=== PATIENT | female | born 1945 | race Caucasian/White ===

== ENCOUNTER 2020-02-12 14:04 | Outpatient (REF) | payer MEDICARE, SELFPAY ==
--- NOTE | 2020-02-12 | MM_ITS ---
EXAMINATION: MM SCREENING DIGITAL BREAST TOMOSYNTHESIS, BILATERAL CLINICAL INFORMATION: Screening. Asymptomatic. The lifetime risk of breast cancer based on the Tyrer-Cuzick Model is 4%. COMPARISON: Mammography: 03/27/2019, 10/20/2018, 05/17/2017 TECHNIQUE: Digital breast tomosynthesis is performed in both the craniocaudal and mediolateral oblique views along with computer-aided detection (CAD). Synthesized 2D images are generated from the tomosynthesis. Additional bilateral CC views are provided. FINDINGS: There are scattered areas of fibroglandular density (ACR BI-RADS breast composition Category b). Parenchymal pattern is similar to prior studies. No interval mass or developing density or architectural abnormality. Again, there are scattered bilateral benign round and rim and coarse calcifications. No significant changes. MM/MM tomosynthesis screening BI IMPRESSION: No mammographic evidence of malignancy. ASSESSMENT: BI-RADS 2: Benign RECOMMENDATION: Routine annual mammography screening. This patient's information was entered into a reminder system with a target due date for their next mammogram.
--- NOTE | 2020-02-12 | MM_ITS ---
EXAMINATION: BONE DENSITOMETRY CLINICAL INDICATION: Asymptomatic menopausal state. COMPARISON: Baseline BD dated 03/01/2017. TECHNIQUE: Using a [employer] DXA System (software version: 13.1) manufactured by [employer], dual-energy x-ray absorptiometry was performed of the lumbar spine and left hip. The images are of good technical quality. Summary results are attached. FINDINGS: AP SPINE L1-L4 (excluding L3): The data of L1-L4 has been changed to exclude the L3 vertebral body, because degenerative changes at this level may cause overestimation of lumbar spine density. Current: BMD 1.362 g/cm2, Z-score 2.2, T-score 1.6, normal, 3.1% increase from baseline (<5% change is not significant). Baseline: BMD 1.321 g/cm2. LEFT FEMUR, NECK: Current: BMD 0.906 g/cm2, Z-score 0.3, T-score -1.0, normal. Baseline: BMD 0.882 g/cm2. LEFT FEMUR, TOTAL: Current: BMD 1.025 g/cm2, Z-score 1.1, T-score 0.1, normal, 0.1% decrease from baseline (<5% change is not significant). Baseline: BMD 1.026 g/cm2. IDENTIFIED RISK FACTORS: Recurrent falls, history of fracture (adult), low calcium intake, glucocorticoids (chronic), menopause. HISTORY OF FRACTURE: Forearm, wrist, humerus. MEDICATIONS: Calcium supplements or multivitamin. MM/XR DEXA axial skeleton IMPRESSION: 1. DIAGNOSIS: Normal bone density based on the lowest T-score value of -1.0 in the femoral neck applying World Health Organization criteria. 2. 10-YEAR FRACTURE RISK PREDICTION, FRAX: Major osteoporotic fracture (clinical spine, forearm, hip or shoulder) 20.0%. Hip fracture 3.1%. 3. Treatment Recommendations: NOF guidelines recommend consideration for treatment in postmenopausal women and men age 50 and older presenting with the following: -A hip or vertebral (clinical or morphometric) fracture. -T-score less than or equal to -2.5 at the femoral neck or spine after appropriate evaluation to exclude secondary causes. -Low bone mass at the hip or spine and a 10-year fracture probability by FRAX of greater than or equal to 3% for hip fracture or greater than or equal to 20% for major osteoporotic fracture based on the [place] adapted WHO algorithm. 4. Other Recommendations: All treatment decisions require clinical judgment and consideration of individual patient factors, including patient preferences, comorbidities, previous drug use, risk factors not captured in the FRAX model (e.g. frailty, falls, vitamin D deficiency, increased bone turnover, interval significant decline in bone density) and possible under or overestimation of fracture risk by FRAX. FUTURE SCAN RECOMMENDATION: People with diagnosed cases of osteoporosis or at high risk for fracture should have regular bone mineral density tests. For patients eligible for Medicare, routine testing is allowed once every 2 years. The testing frequency can be increased to one year for patients who have rapidly progressing disease, those who are receiving or discontinuing medical therapy to restore bone mass, or have additional risk factors.
== END 2020-02-12 14:05 | disposition home or self-care (01) ==
LOC: HO.MAMMO 14:04
PROVIDERS: Visit Provider Internal Medicine
DX: Z12.31 Encounter for screening mammogram for malignant neoplasm of breast (principal); Z13.820 Encounter for screening for osteoporosis; Z78.0 Asymptomatic menopausal state
CPT/HCPCS: 77063; 77067; 77080

== ENCOUNTER 2021-04-27 16:02 | Outpatient (REF) | payer MEDICARE, SELFPAY ==
--- NOTE | ~2021-04-27 | MM_ITS ---
EXAMINATION: MM SCREENING DIGITAL BREAST TOMOSYNTHESIS, BILATERAL CLINICAL INFORMATION: Screening. Asymptomatic. The lifetime risk of breast cancer based on the Tyrer-Cuzick Model is 3%. COMPARISON: Mammography: 02/12/2020, 03/27/2019, 10/20/2018, 05/17/2017, 02/12/2016 TECHNIQUE: Digital breast tomosynthesis is performed in both the craniocaudal and mediolateral oblique views along with computer-aided detection (CAD). Synthesized 2D images are generated from the tomosynthesis. Additional bilateral CC and left MLO views are provided. FINDINGS: There are scattered areas of fibroglandular density (ACR BI-RADS breast composition Category b). There is fine fibronodular parenchymal pattern with scattered benign round and coarse and rim calcifications again noted. The right breast shows no interval mass or architectural abnormality or developing density. The bilateral axilla and skin contours are unremarkable. Left breast has segmental grouped circumscribed nodularity lower inner quadrant mid depth, increased in number and size from prior exams. This could represent focal fibrocystic changes and/or duct ectasia. No architectural abnormality demonstrated. No associated calcification. Patient will be recalled for additional imaging. MM/MM tomosynthesis screening BI IMPRESSION: 1. Left: Segmental group circumscribed nodularity lower inner quadrant mid depth, possibly focal fibrocystic changes and/or duct ectasia. 2. Right: No mammographic evidence of malignancy. ASSESSMENT: BI-RADS 0: Incomplete - Need Additional Imaging Evaluation RECOMMENDATION: 1. Additional views of the left breast (spot CC, spot LM). 2. Targeted ultrasound left breast. 3. Radiology department staff will contact the patient for additional imaging. This patient's information was entered into a reminder system with a target due date for their next mammogram.
== END 2021-04-27 16:03 | disposition home or self-care (01) ==
LOC: HO.MAMMO 16:02
PROVIDERS: Visit Provider Nurse Practitioner Family
DX: Z12.31 Encounter for screening mammogram for malignant neoplasm of breast (principal)
CPT/HCPCS: 77063; 77067

== ENCOUNTER 2021-05-06 14:42 | Outpatient (REF) | payer MEDICARE, SELFPAY ==
--- NOTE | ~2021-05-06 | MM_ITS ---
EXAMINATION: MM DIAGNOSTIC DIGITAL BREAST TOMOSYNTHESIS, LEFT US DIAGNOSTIC ULTRASOUND BREAST, LEFT CLINICAL INFORMATION: Recall from screening for fine circumscribed nodularity lower inner left breast mid depth, possibly focal fibrocystic changes and/or duct ectasia. COMPARISON: Mammography: 04/27/2021, 02/12/2020, 10/20/2018 TECHNIQUE: Digital breast tomosynthesis is performed. 2D images are generated from the tomosynthesis. The following views are obtained: Spot CC, spot LM. Ultrasound left breast is targeted to the lower inner breast. Grayscale imaging and color Doppler are performed without and with harmonics. FINDINGS: There are scattered areas of fibroglandular density (ACR BI-RADS breast composition Category b). The additional views show some scattered fine isolated nodularity lower inner breast slightly increased in number from prior study exams. There are no tubular or linear tracking to suggest duct ectasia. No architectural abnormality. Ultrasound demonstrates a few isolated tiny cystic foci. No solid mass or focal duct ectasia. No abnormal color flow. Results are discussed with the patient at time of visit. Finding likely represents focal fibrocystic changes slightly increased from prior studies. Left breast will be reassessed again in 6 months as unilateral diagnostic exam. MM/MM tomosynthesis added views L IMPRESSION: Additional imaging to suggest focal fibrocystic changes lower inner left breast slightly increased since prior exams. No duct ectasia or solid mass or abnormal color flow. ASSESSMENT: BI-RADS 3: Probably Benign RECOMMENDATION: Diagnostic left mammography in 6 months. This patient's information was entered into a reminder system with a target due date for their next mammogram.
== END 2021-05-06 14:43 | disposition home or self-care (01) ==
LOC: HO.MAMMO 14:42
PROVIDERS: Visit Provider Nurse Practitioner Family
DX: R92.8 Other abnormal and inconclusive findings on diagnostic imaging of breast (principal)
CPT/HCPCS: 76642; 77061; 77065

== ENCOUNTER 2021-12-17 14:49 | Outpatient (REF) | payer MEDICARE, SELFPAY ==
--- NOTE | ~2021-12-17 | MM_ITS ---
EXAMINATION: MM DIAGNOSTIC DIGITAL BREAST TOMOSYNTHESIS, LEFT CLINICAL INFORMATION: Short interval six-month follow-up benign-appearing nodularity lower inner left breast is suspected fibrocystic foci. TC score 3%. COMPARISON: Mammography: 10/03/2021, 04/27/2021 (BI-RADS 0), 02/12/2020, 10/20/2018, 05/17/2017 TECHNIQUE: Digital breast tomosynthesis is performed in both the craniocaudal and mediolateral oblique views along with computer-aided detection (CAD). Synthesized 2D images are generated from the tomosynthesis. FINDINGS: There are scattered areas of fibroglandular density (ACR BI-RADS breast composition Category b). Parenchymal pattern is similar to prior studies. The small focal fibronodular pattern lower inner quadrant is a chronic finding and slightly decreased from prior diagnostic exam. There is no focal developing density or architectural abnormality. Scattered benign round and rim calcifications are again seen. The axilla and skin contours are unremarkable. Results are provided to the patient at time of visit by the technologist. MM/MM tomosynthesis diagnostic LT IMPRESSION: -Fibrocystic foci lower inner quadrant are slightly decreased from prior diagnostic exam. ASSESSMENT: BI-RADS 3: Probably Benign RECOMMENDATION: Diagnostic mammography at time of annual bilateral mammography, due in 6 months. This patient's information was entered into a reminder system with a target due date for their next mammogram.
== END 2021-12-17 14:50 | disposition home or self-care (01) ==
LOC: HO.MAMMO 14:49
PROVIDERS: Visit Provider Internal Medicine
DX: N63.24 Unspecified lump in the left breast, lower inner quadrant (principal)
CPT/HCPCS: 77061; 77065

== ENCOUNTER 2022-07-13 13:11 | Outpatient (REF) | payer MEDICARE, SELFPAY ==
--- NOTE | ~2022-07-13 | MM_ITS ---
EXAMINATION: MM DIAGNOSTIC DIGITAL BREAST TOMOSYNTHESIS, BILATERAL CLINICAL INFORMATION: Due for yearly. Follow-up probable benign small focal fibrocystic changes lower inner left breast. The lifetime risk of breast cancer based on the Tyrer-Cuzick Model is 3%. COMPARISON: Mammography: 12/17/2021, 05/06/2021, 04/27/2021 (BI-RADS 0), 02/12/2020, 03/27/2019, 10/20/2018; left breast ultrasound 05/06/2021; right breast ultrasound 03/27/2019 TECHNIQUE: Digital breast tomosynthesis is performed in both the craniocaudal and mediolateral oblique views along with computer-aided detection (CAD). Synthesized 2D images are generated from the tomosynthesis. Additional bilateral CC and additional bilateral MLO views are provided. FINDINGS: There are scattered areas of fibroglandular density (ACR BI-RADS breast composition Category b). Parenchymal pattern is similar to recent prior exams. The fibronodular densities mid lower inner left breast for follow-up are stable from prior diagnostic exams. No developing density or interval architectural abnormality. There are again benign bilateral scattered round and rim and some bulky coarse calcifications. There is no developing density or architectural abnormality. The axilla are unremarkable. Results are provided to the patient at time of visit by the technologist. MM/MM tomosynthesis diagnostic BI IMPRESSION: Left: -No significant changes in probable benign fibronodular focal fibrocystic changes lower inner left breast. Right: -No mammographic evidence of malignancy. ASSESSMENT: BI-RADS 3: Probably Benign RECOMMENDATION: Diagnostic left mammography in 6 months. This patient's information was entered into a reminder system with a target due date for their next mammogram.
--- NOTE | ~2022-07-13 | MM_ITS ---
EXAMINATION: BONE DENSITOMETRY CLINICAL INDICATION: Postmenopausal. COMPARISON: Previous BD dated 02/12/2020 and baseline BD dated 03/01/2017. TECHNIQUE: Using a [employer] DXA System (software version: 13.1) manufactured by [employer], dual-energy x-ray absorptiometry was performed of the lumbar spine and left hip. The images are of good technical quality. Summary results are attached. FINDINGS: AP SPINE L1-L4: Current: BMD 1.395 g/cm2, Z-score 2.4, T-score 1.8, normal, 2.8% decrease from previous, 2.3% increase from baseline (<5% change is not significant). Prior: BMD 1.435 g/cm2. Baseline: BMD 1.363 g/cm2. LEFT FEMUR, NECK: Current: BMD 0.882 g/cm2, Z-score 0.2, T-score -1.1, osteopenia. Prior: BMD 0.906 g/cm2. Baseline: BMD 0.882 g/cm2. LEFT FEMUR, TOTAL: Current: BMD 0.999 g/cm2, Z-score 1.0, T-score -0.1, normal, 2.5% decrease from previous, 2.6% decrease from baseline (<5% change is not significant). Prior: BMD 1.025 g/cm2. Baseline: BMD 1.026 g/cm2. IDENTIFIED RISK FACTORS: Menopause, height loss, history of fracture (adult), osteoporosis. HISTORY OF FRACTURE: Forearm, humerus, shoulder, wrist. MEDICATIONS: Calcium, multivitamin. MM/XR DEXA axial skeleton IMPRESSION: 1. DIAGNOSIS: Osteopenia based on the lowest T-score value of -1.1 in the femoral neck applying World Health Organization criteria. 2. 10-YEAR FRACTURE RISK PREDICTION, FRAX: Major osteoporotic fracture (clinical spine, forearm, hip or shoulder) 14.5%. Hip fracture 2.3%. 3. Treatment Recommendations: NOF guidelines recommend consideration for treatment in postmenopausal women and men age 50 and older presenting with the following: -A hip or vertebral (clinical or morphometric) fracture. -T-score less than or equal to -2.5 at the femoral neck or spine after appropriate evaluation to exclude secondary causes. -Low bone mass at the hip or spine and a 10-year fracture probability by FRAX of greater than or equal to 3% for hip fracture or greater than or equal to 20% for major osteoporotic fracture based on the [place] adapted WHO algorithm. 4. Other Recommendations: All treatment decisions require clinical judgment and consideration of individual patient factors, including patient preferences, comorbidities, previous drug use, risk factors not captured in the FRAX model (e.g. frailty, falls, vitamin D deficiency, increased bone turnover, interval significant decline in bone density) and possible under or overestimation of fracture risk by FRAX. Additional medical evaluation for secondary cause of low bone mineral density may be appropriate. FUTURE SCAN RECOMMENDATION: People with diagnosed cases of osteoporosis or at high risk for fracture should have regular bone mineral density tests. For patients eligible for Medicare, routine testing is allowed once every 2 years. The testing frequency can be increased to one year for patients who have rapidly progressing disease, those who are receiving or discontinuing medical therapy to restore bone mass, or have additional risk factors.
== END 2022-07-13 13:12 | disposition home or self-care (01) ==
LOC: HO.MAMMO 13:11
PROVIDERS: PCP Internal Medicine; Visit Provider Nurse Practitioner Family
DX: Z13.820 Encounter for screening for osteoporosis (principal); Z78.0 Asymptomatic menopausal state; N63.24 Unspecified lump in the left breast, lower inner quadrant
CPT/HCPCS: 77062; 77066; 77080

== ENCOUNTER 2023-04-08 09:24 | Outpatient (REF) | payer MEDICARE, SELFPAY ==
--- NOTE | ~2023-04-08 | MM_ITS ---
EXAMINATION: MM DIAGNOSTIC DIGITAL BREAST TOMOSYNTHESIS, LEFT CLINICAL INFORMATION: 6 month follow-up for two-year stability nodular foci left inferomedial breast likely representing fibrocystic changes. Patient has remote history of excisional biopsy left breast. COMPARISON: Mammography: 07/13/2022, 12/17/2021, 05/06/2021, 04/27/2021 (BI-RADS 0). TECHNIQUE: Digital left breast tomosynthesis is performed in both the craniocaudal and mediolateral oblique views along with computer-aided detection (CAD). Synthesized 2D images are generated from the tomosynthesis. Due to skin folds, 2 full-field left MLO views were obtained. In addition, 2 left full-field CC projections were obtained for anterior compression. FINDINGS: There are scattered areas of fibroglandular density (ACR BI-RADS breast composition Category b). There are stable nodular foci in the inferolateral medial left breast, as well as the retroareolar region without change from 2021, reflecting fibrocystic changes and benign with two-year stability. No further follow-up recommended. There are stable scattered benign type calcifications. There is stable surgical scarring in the upper outer posterior left breast. There are no suspicious findings or changes of concern. MM/MM tomosynthesis diagnostic LT IMPRESSION: There are no significant changes from prior studies. Stable fibrocystic nodular foci medial inferior left breast. These show two-year stability and are benign. No further follow-up recommended. Recommend the patient return to routine annual screening in August 2023. ASSESSMENT: BI-RADS BI-RADS 2 - Benign Findings RECOMMENDATION: 1 year F/U Results were provided to the patient at time of visit by the technologist. This patient's information was entered into a reminder system with a target due date for their next mammogram.
== END 2023-04-08 09:25 | disposition home or self-care (01) ==
LOC: HO.MAMMO 09:24
PROVIDERS: PCP Internal Medicine; Visit Provider Nurse Practitioner Family
DX: N64.89 Other specified disorders of breast (principal)
CPT/HCPCS: 77061; 77065

== ENCOUNTER → 2023-04-08 09:30 | Outpatient (BNV) | payer MEDICARE, SELFPAY | PROVIDERS: PCP Internal Medicine; Visit Provider Radiology Diagnostic Radiology | DX: N63.24 Unspecified lump in the left breast, lower inner quadrant (principal) | CPT/HCPCS: 77061; 77065 ==